=== PATIENT | female | born 1980 | race Hispanic/Latino ===

== ENCOUNTER 2020-10-09 12:27 | Emergency (ER) | payer OTHER ==
[~2020-10-09] VITALS: Ht 142.2 cm; Wt 72.6 kg
[2020-10-09 12:30] VITALS: BP 114/64
[2020-10-09 12:55] LABS: APPEARANCE,URINE Cloudy (CLEAR); BILIRUBIN,URINE Negative (NEGATIVE); COLOR,URINE Yellow (YELLOW); GLUCOSE, URINE (UA) Negative (NEGATIVE); KETONES,URINE Negative (NEGATIVE); LEUKOCYTE ESTERASE ,URINE Large (NEGATIVE); NITRATE,URINE Negative (NEGATIVE); OCCULT BLOOD,URINE Negative (NEGATIVE); PH,URINE 7.5 (5.0-8.0); PROTEIN,URINE Trace mg/dL (NEGATIVE)
[2020-10-09 13:26] LABS: HCG,QUAL RESULT NEGATIVE (NEGATIVE)
[2020-10-09 13:32] LABS: BACTERIA,URINE Few /HPF (None Seen); MUCUS,URINE Few LPF (None Seen); RBC,URINE 0-1 /HPF (0-1); SQUAMOUS EPITHELIAL CELL,UR Moderate /HPF (0-2)
[2020-10-09] MEDS ORDERED: PHEN-847 PO (13:32)
[2020-10-09] MEDS ORDERED: CEPH500B PO (13:32)
[2020-10-09] MEDS ORDERED: CEFTRIAXONE 500MG VIAL IM STA (13:35)
[2020-10-09] MEDS ORDERED: AZITHROMYCIN 200 MG/ 5 ML BTL PO STA (13:35)
== END 2020-10-09 13:45 | disposition home or self-care (01) ==
LOC: EDH 12:27
DX: N30.90 Cystitis, unspecified without hematuria (principal); Z79.899 Other long term (current) drug therapy
CPT/HCPCS: 81001; 81025; 87088

== ENCOUNTER 2021-10-20 18:26 | Emergency (ER) | payer OTHER ==
[~2021-10-20] VITALS: Ht 142.2 cm; Wt 67.1 kg
[~2021-10-20 18:26] MED LIST: CEPH500B PO; PHEN-847 PO
[2021-10-20 18:28] VITALS: BP 111/41
[2021-10-20 19:29] LABS: APPEARANCE,URINE HAZY (CLEAR); BILIRUBIN,URINE NEGATIVE (NEGATIVE); COLOR,URINE YELLOW (YELLOW); GLUCOSE, URINE (UA) NEGATIVE (NEGATIVE); KETONES,URINE 5 mg/dL (NEGATIVE); LEUKOCYTE ESTERASE ,URINE NEGATIVE (NEGATIVE); NITRATE,URINE NEGATIVE (NEGATIVE); OCCULT BLOOD,URINE NEGATIVE (NEGATIVE); PH,URINE 7.5 (5.0-8.0); PROTEIN,URINE NEGATIVE (NEGATIVE); UROBILINOGEN,URINE 0.2 mg/dL (0.2-1.0)
[2021-10-20 19:30] LABS: BACTERIA,URINE Few /HPF (None Seen); MUCUS,URINE Few LPF (None Seen); RBC,URINE None Seen /HPF (0-1); WBC,URINE 0-1 /HPF (0-1)
[2021-10-20] MEDS ORDERED: 0.9% NACL 500ML IV.SOLN 500 ML IV ONE (19:30)
[2021-10-20 19:31] LABS: HCG,QUAL RESULT NEGATIVE (NEGATIVE)
[2021-10-20 19:44] LABS: BASOPHILS % (AUTO) 0.5 % (0.0-5.0); EOSINOPHILS % (AUTO) 1.5 % (0.0-8.0); HEMATOCRIT 40.7 % (36-48); LYMPHOCYTES % (AUTO) 27.9 % (21.0-51.0); MEAN CORPUSCULAR HEMOGLOBIN 25.4 pg (27.0-33.0); MEAN CORPUSCULAR HGB CONC 31.4 g/dL (32.0-36.0); MEAN CORPUSCULAR VOLUME 80.8 fL (79-99); MONOCYTES % (AUTO) 6.1 % (3.0-13.0); NEUTROPHILS % (AUTO) 63.6 % (40.0-77.0); PLATELET COUNT (AUTO) 337 K/uL (130-400); RED BLOOD CELL COUNT(AUTO) 5.04 MIL/uL (4.00-5.50); RED CELL DISTRIBUTION WIDTH 17.3 % (11.0-15.5); WHITE BLOOD COUNT (AUTO) 11.6 K/uL (4.8-10.8)
[2021-10-20 19:58] LABS: CREATININE 0.7 mg/dL (0.5-1.5)
[2021-10-20 20:03] LABS: ALBUMIN 3.8 g/dL (3.5-5.0); BILIRUBIN,TOTAL 0.4 mg/dL (0.2-1.0); TOTAL PROTEIN, SERUM 7.8 g/dL (6.0-8.3)
[2021-10-20] MEDS ORDERED: AZITHROMYCIN 250 MG TABLET PO ONE (20:30)
[2021-10-20] MEDS ORDERED: CEFTRIAXONE 500MG VIAL IM SCH (20:30)
[2021-10-20] MEDS ORDERED: NAPR500T6 PO (21:07)
[2021-10-20] MEDS ORDERED: METR-172 PO (21:07)
[2021-10-20] MEDS ORDERED: KETOROLAC 15MG/ML VIAL (15MG/ML) IV ONE (21:30)
[2021-10-20] MEDS ORDERED: METRONIDAZOLE 500 MG TABLET PO SCH (21:30)
== END 2021-10-20 21:27 | disposition home or self-care (01) ==
LOC: EDH 18:26
DX: N76.0 Acute vaginitis (principal); B96.89 Other specified bacterial agents as the cause of diseases classified elsewhere; Z79.1 Long term (current) use of non-steroidal anti-inflammatories (NSAID)
CPT/HCPCS: 36415; 80053; 81001; 81025; 85025; 87210; 87486; 87797; 96361; 96372; 96374; 99284; J0696; J1885; J7040